=== PATIENT | male | born 1970 ===

== ENCOUNTER 2018-07-12 07:24 | Emergency (ER) | payer OTHER ==
[~2018-07-12] VITALS: Ht 167.6 cm; Wt 117.9 kg
== END 2018-07-12 10:26 | disposition home or self-care (01) ==
LOC: ER 07:24
DX: S51.821A Laceration with foreign body of right forearm, initial encounter (principal); W45.8XXA Other foreign body or object entering through skin, initial encounter; Y93.89 Activity, other specified; Y92.69 Other specified industrial and construction area as the place of occurrence of the external cause; Y99.8 Other external cause status